=== PATIENT | female | born 1980 | race Caucasian/White ===

== ENCOUNTER 2021-06-30 12:20 | Emergency (ER) | payer OTHER ==
[~2021-06-30] VITALS: Ht 172.7 cm; Wt 77.3 kg
[2021-06-30] MEDS ORDERED: KETOROLAC TROMETHAMINE 10 MG TABLET PO ONE (14:00)
[2021-06-30] MEDS ORDERED: METHOCARBAMOL 500 MG TABLET PO ONE (14:00)
[2021-06-30] MEDS ORDERED: GABAPENTIN 300 MG CAPSULE PO ONE (14:00)
[2021-06-30] MEDS ORDERED: METH-659 PO (14:02)
[2021-06-30] MEDS ORDERED: NAPR-1025 PO (14:02)
[2021-06-30] MEDS ORDERED: GABA-1181 PO (14:02)
[2021-06-30 14:22] VITALS: BP 135/82
== END 2021-06-30 14:52 | disposition home or self-care (01) ==
LOC: EMS 12:26
DX: S76.811A Strain of other specified muscles, fascia and tendons at thigh level, right thigh, initial encounter (principal); G57.01 Lesion of sciatic nerve, right lower limb; Z98.890 Other specified postprocedural states; Z88.8 Allergy status to other drugs, medicaments and biological substances; X58.XXXA Exposure to other specified factors, initial encounter; Y93.89 Activity, other specified; Y92.89 Other specified places as the place of occurrence of the external cause; Y99.8 Other external cause status
CPT/HCPCS: 99284; 73562-TC; Z7502; Z7610